=== PATIENT | female | born 1995 | race Caucasian/White ===

== ENCOUNTER 2018-02-13 16:06 | Emergency (ER) | payer OTHER ==
[2018-02-13 17:06] LABS: PLATELET COUNT 121 10^3/uL (150-400)
--- NOTE | 2018-02-13 17:13 | EDPHY ---
HPI/HX/ROS/PE/MDM Narrative: CHIEF COMPLAINT: Headache, fever. HPI: This patient is a healthy 22 year old female. She complains of fever onset three days ago. She has associated headaches and hot and cold flashes. She feels fatigued. She denies any observed skin rashes. Her sister had similar symptoms last week, but the patient is not sure what her sister had, stating it was "some virus". Additionally, the patient reports that she has been drinking water frequently but still feels dehydrated. She denies vomiting, diarrhea, urinary complaints, cough, chest pain, shortness of breath, or other associated symptoms. REVIEW OF SYSTEMS: Aside from elements discussed in the HPI, a comprehensive 10-point review of systems was reviewed and is negative. PMH: Denies. SOCIAL HISTORY: Visiting from [place]. 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 PHYSICAL EXAM: General:Patient is alert, in no acute distress. ENT:Eyes are normal to inspection. ENT inspection normal. Neck: Normal inspection. Full range of motion. Respiratory:No respiratory distress. Breath sounds normal bilaterally. Cardiovascular: Regular rate and rhythm. Strong peripheral pulses. Normal cap refill. Abdomen:The abdomen is nontender to palpation. There are no peritoneal signs. There are normal bowel sounds. Back: Normal to inspection. No tenderness to palpation. Skin: Normal color. No rash. Warm and dry. Extremities: Normal appearance. Full range of motion. Neuro: Oriented x3. Normal motor function. Normal sensory function. ED Course: 22 y/o female presents with 3 days history of fever and headache. No neck stiffness or photophobia on exam. Plan for labs including CBC, chemistries, flu swab, BHCG. Plan to administer 30mg IV Toradol and 1L IVF for symptom relief. Flu swab negative. Labs otherwise unremarkable. 18:57 Reassessed. Patient is feeling better after medications and IVF. Plan to discharge home in good condition. Follow up and return precautions discussed. She is comfortable with this plan. MDM: This is a healthy young female who presents with signs and symptoms of a viral syndrome. She has no focal complaints or positive workup to suggest pneumonia, UTI. Her abdomen is completely benign and she denies abdominal pain, making appendicitis or other abdominal pathology unlikely. She has very clear absence of any meningeal signs to suggest meningitis. Her influenza swab is negative but I suspect another virus is likely a workup. The patient was treated with Toradol and IV fluids and feels much better. She declines further workup. We discussed strict return precautions. - Data Points Laboratory Results: Laboratory Results 02/13/18 16:51 02/13/18 16:51 02/13/18 02/13/18 02/13/18 17:46 17:14 16:51 WBC RBC Hgb Hct MCV MCH MCHC RDW Plt Count MPV Neut % (Auto) Lymph % (Auto) Morgan % (Auto) Eos % (Auto) Baso % (Auto) Nucleat RBC Rel Count Absolute Neuts (auto) Absolute Lymphs (auto) Absolute Monos (auto) Absolute Eos (auto) Absolute Basos (auto) Absolute Nucleated RBC Immature Gran % Seg Neutrophils % Band Neutrophils % Lymphocytes % Monocytes % Eosinophils % Basophils % Metamyelocytes % Myelocytes % Promyelocytes % Blast Cells % Immature Gran # Absolute Seg Neuts Absolute Band Neuts Absolute Lymphocytes Absolute Monocytes Absolute Eosinophils Absolute Basophils Absolute Metamyelocyte Absolute Myelocytes Absolute Promyelocytes Absolute Plasma Cells Nucleated RBCs RBC/WBC/PLT Morphology Absolute Blast Cells Plasma Cells % Platelet Estimate Sodium 136 mEq/L mEq/L (135-145) Potassium 4.1 mEq/L mEq/L (3.3-5.0) Chloride 107 mEq/L mEq/L (97-110) Carbon Dioxide 16 mEq/l L mEq/l (22-31) Anion Gap 13 mEq/L mEq/L (8-16) BUN 9 mg/dL mg/dL (7-23) Creatinine 0.8 mg/dL mg/dL (0.6-1.0) Estimated GFR > 60 Glucose 78 mg/dL mg/dL (70-100) Calcium 9.1 mg/dL mg/dL (8.5-10.4) Beta HCG, Qual NEGATIVE Specimen Hemolysis 107 Nasal Influenza A PCR NEGATIVE FOR FLU A (NEGATIVE) Nasal Influenza B PCR NEGATIVE FOR FLU B (NEGATIVE) 02/13/18 16:51 WBC 3.82 10^3/uL 10^3/uL (3.80-9.50) RBC 4.38 10^6/uL 10^6/uL (4.18-5.33) Hgb 13.6 g/dL g/dL (12.6-16.3) Hct 39.7 % % (38.0-47.0) MCV 90.6 fL fL (81.5-99.8) MCH 31.1 pg pg (27.9-34.1) MCHC 34.3 g/dL g/dL (32.4-36.7) RDW 12.8 % % (11.5-15.2) Plt Count 121 10^3/uL L 10^3/uL (150-400) MPV 11.4 fL fL (8.7-11.7) Neut % (Auto) Not Reported Lymph % (Auto) Not Reported Morgan % (Auto) Not Reported Eos % (Auto) Not Reported Baso % (Auto) Not Reported Nucleat RBC Rel Count Not Reported Absolute Neuts (auto) Not Reported Absolute Lymphs (auto) Not Reported Absolute Monos (auto) Not Reported Absolute Eos (auto) Not Reported Absolute Basos (auto) Not Reported Absolute Nucleated RBC Not Reported Immature Gran % Not Reported Seg Neutrophils % 58.0 % % Band Neutrophils % 24.0 % % Lymphocytes % 8.0 % % Monocytes % 10.0 % % Eosinophils % 0 % % Basophils % 0 % % Metamyelocytes % 0 % % Myelocytes % 0 % % Promyelocytes % 0 % % Blast Cells % 0 % % Immature Gran # Not Reported Absolute Seg Neuts 2.22 10^/uL 10^/uL (1.70-6.50) Absolute Band Neuts 0.92 10^3/uL H 10^3/uL (0.00-0.70) Absolute Lymphocytes 0.31 10^3/uL L 10^3/uL (1.00-3.00) Absolute Monocytes 0.38 10^3/uL 10^3/uL (0.30-0.80) Absolute Eosinophils 0.00 10^3/uL L 10^3/uL (0.03-0.40) Absolute Basophils 0.00 10^3/uL L 10^3/uL (0.02-0.10) Absolute Metamyelocyte 0.00 10^3/mL 10^3/mL (0.00-0.00) Absolute Myelocytes 0.00 10^3/mL 10^3/mL (0.00-0.00) Absolute Promyelocytes 0.00 10^3/uL 10^3/uL (0.00-0.00) Absolute Plasma Cells 0.00 10^3/uL 10^3/uL (0.00-0.00) Nucleated RBCs 0 /100 WBC /100 WBC (0-0) RBC/WBC/PLT Morphology NORMAL (NORMAL) Absolute Blast Cells 0.00 10^3/uL 10^3/uL (0.00-0.00) Plasma Cells % 0 % % Platelet Estimate DECREASED L (ADEQ) Sodium Potassium Chloride Carbon Dioxide Anion Gap BUN Creatinine Estimated GFR Glucose Calcium Beta HCG, Qual Specimen Hemolysis Nasal Influenza A PCR Nasal Influenza B PCR Medications Given: Discontinued Medications Sodium Chloride (Ns) 1,000 mls @ 0 mls/hr IV EDNOW ONE; Wide Open PRN Reason: Protocol Stop: 02/13/18 17:22 Last Admin: 02/13/18 18:06 Dose: 1,000 mls Ketorolac Tromethamine (Toradol) 30 mg IVP EDNOW ONE Stop: 02/13/18 17:22 Last Admin: 02/13/18 18:06 Dose: 30 mg General Time Seen by Provider: 02/13/18 16:50 Initial Vital Signs: Initial Vital Signs Temperature (C) 37.9 C 02/13/18 16:15 Heart Rate 102 H 02/13/18 16:15 Respiratory Rate 18 02/13/18 16:15 Blood Pressure 93/66 L 02/13/18 16:15 O2 Sat (%) 93 02/13/18 16:15 O2 Delivery Mode Room Air Allergies/Adverse Reactions: No Known Allergies Allergy (Unverified 02/13/18 16:15) Home Medications: Medication Instructions Recorded Adderall 20 mg (*) 02/13/18 Departure - Departure Disposition: Home, Routine, Self-Care Clinical Impression: Viral syndrome Condition: Good Instructions: Viral Syndrome (ED) Additional Instructions: Use ibuprofen and Tylenol as needed for fever and body aches. Follow up with your primary care physician within 2-3 days hours for reevaluation. Drink plenty of fluids. Return to the emergency department for high fever, severe headache or neck pain , difficulty breathing, abdominal pain, rash or other worsening of condition. Referrals: JESSICA ULLOA [Other] - As per Instructions Report Scribed for: Herve Christian Report Scribed by: Evelin Rodrigues Date of Report: 02/13/18 Time of Report: 17:12 Physician Review and Approval Statement: Portions of this note were transcribed by an ED scribe. I personally performed the history, physical exam, and medical decision making; and confirm the accuracy of the information in the transcribed note.
[2018-02-13] MEDS ORDERED: NS 1,000 ML IV ONE (17:21)
[2018-02-13] MEDS ORDERED: KETOROLAC 30 MG/1 ML SDV IVP ONE (17:21)
[2018-02-13 19:18] VITALS: BP 107/65
== END 2018-02-13 19:18 | disposition home or self-care (01) ==
DX: B34.9 Viral infection, unspecified (principal); E86.9 Volume depletion, unspecified
CPT/HCPCS: 96374; J1885